=== PATIENT | female | born 1935 | race Caucasian/White ===

== ENCOUNTER → 2017-03-08 | Outpatient (CLI) | payer OTHER ==
[~2017-03-08] MED LIST: ADVAIR 500-501 EACH INH; CLOTRIMAZOLE10 MG PO; COMPAZINE10 MG; DUONEB 2.5-0.5 M3 ML INH; ESTROGEN-METHY1 EAC3 PO; MOBIC15 MG PO; NORTRIPTYLINE H75 M1 PO; OXYCONTIN10 M1 PO; PRINIVIL20 MG PO; PROAIR HFA8.5 GM; TRAZODONE HCL50 MG PO; VISTARIL 25 MG25 M1 PO
== END ==
LOC: HYPER 07:56
DX: S81.812A Laceration without foreign body, left lower leg, initial encounter (principal); E78.5 Hyperlipidemia, unspecified; J44.9 Chronic obstructive pulmonary disease, unspecified; I10 Essential (primary) hypertension; M81.0 Age-related osteoporosis without current pathological fracture; H26.9 Unspecified cataract; Z98.49 Cataract extraction status, unspecified eye; Z72.89 Other problems related to lifestyle; X58.XXXA Exposure to other specified factors, initial encounter; Y93.89 Activity, other specified; Y92.89 Other specified places as the place of occurrence of the external cause; Y99.8 Other external cause status

== ENCOUNTER → 2017-03-22 | Outpatient (CLI) | payer OTHER | LOC: HYPER 06:48 | DX: S81.812D Laceration without foreign body, left lower leg, subsequent encounter (principal); I10 Essential (primary) hypertension; E78.5 Hyperlipidemia, unspecified; M81.0 Age-related osteoporosis without current pathological fracture; J43.9 Emphysema, unspecified; X58.XXXD Exposure to other specified factors, subsequent encounter; Z72.89 Other problems related to lifestyle ==

== ENCOUNTER → 2018-04-17 | Outpatient (CLI) | payer OTHER | LOC: HYPER 07:00 | DX: S51.811A Laceration without foreign body of right forearm, initial encounter (principal); E78.5 Hyperlipidemia, unspecified; L13.9 Bullous disorder, unspecified; I10 Essential (primary) hypertension; J43.9 Emphysema, unspecified; N30.00 Acute cystitis without hematuria; M81.0 Age-related osteoporosis without current pathological fracture; Z98.49 Cataract extraction status, unspecified eye; W20.8XXA Other cause of strike by thrown, projected or falling object, initial encounter; Y92.89 Other specified places as the place of occurrence of the external cause; Y99.8 Other external cause status ==

== ENCOUNTER → 2020-04-14 | Outpatient (CLI) | payer OTHER | LOC: HYPER 10:22 | PROVIDERS: ATTEND Specialist | DX: S51.812A Laceration without foreign body of left forearm, initial encounter (principal); S51.012A Laceration without foreign body of left elbow, initial encounter; S41.111A Laceration without foreign body of right upper arm, initial encounter; L13.9 Bullous disorder, unspecified; N30.00 Acute cystitis without hematuria; E78.5 Hyperlipidemia, unspecified; I10 Essential (primary) hypertension; J43.9 Emphysema, unspecified; M81.0 Age-related osteoporosis without current pathological fracture; M25.511 Pain in right shoulder; Z90.49 Acquired absence of other specified parts of digestive tract; Z98.49 Cataract extraction status, unspecified eye; W19.XXXA Unspecified fall, initial encounter; Y93.89 Activity, other specified; Y92.89 Other specified places as the place of occurrence of the external cause; Y99.8 Other external cause status ==